=== PATIENT | male | born 1955 ===

== ENCOUNTER 2022-06-02 13:37 | Inpatient (IN) | payer MEDICARE, MEDICAID, SELFPAY ==
[2022-06-02 16:00] VITALS: BP 137/79; PULSE 116; RESP 32; TEMP 36; O2SAT 95
--- NOTE | 2022-06-02 16:03 | PM.HP.1 ---
History of Present Illness History of Present Illness Chief complaint: ACUTE ON CHRONIC RESPIRATORY FAILURE Narrative: Mr. Valenzuela is a 66M with PMH COPD, CAD, active tobacco use, meth abuse, HTN, TIA, treated Hep C who presents to the hospital with shortness of breath. He has noted shortness of breath for the last few days. He has noted a cough, with little sputum production. He has no fevers or chills. He has noted chest pain when he coughs. No sick contacts. His shortness of breath continued to worsen so he presented to [facility]. In the ED he was noted to be with significant work of breathing. His vitals were notable for a sat in the 80s. He was placed on nasal cannula at 6L. Labs showed a WBC of 21, creatinine 1.6 from baseline of 1.1-1.3. Troponin were indeterminate level. CTA showed no PE, but did show hyperinflated lungs and bibasilar opacities. CT abdomen showed no acute intra-abdominal process. He was RSV positive. COVID negative. He was ordered for steroids, nebulizers and antibiotics. He was requested transfer initially because ED physician Dr. Miller stated that the hospital did not let him admit patients on 6L oxygen. He later called back and changed the reason for transfer due to no open hospital beds. When he arrived he was speaking in full sentences. He felt his shortness of breath was improving. Social history: active smoker approx 5 cigarettes daily, regular meth user, marijuana use Family history: Father with CAD Meds Home Medications and Allergies Home Medications Medication Instructions Recorded Confirmed Type No Known Home Medications 06/02/22 06/02/22 History Allergies Allergy/AdvReac Type Severity Reaction Status Date / Time No Known Drug Allergies Allergy Verified 06/02/22 16:58 Review of Systems Review of Systems Narrative: 14 systems reviewed and negative aside from what is noted in HPI Exam Vital Signs (past 8 hours): - 06/02/22 16:00 Temperature 96.8 F L Pulse Rate 116 H Respiratory Rate 32 H Blood Pressure 137/79 Pulse Oximetry 95 Oxygen Flow Rate 6 Oxygen Flow Rate 6 Narrative Exam Narrative: GEN: chronically ill appearing, disheveled, respiratory distress HEENT: moist mucous membranes, PERRL NECK: trachea midline, no JVD PULM: wheezes and decreased breath sounds bilaterally CV: tachycardic, no murmurs ABD: soft, nontender, nondistended, no organomegaly EXT: warm and well perfused with no edema NEURO: awake, alert, oriented, no focal deficits Objective Labs Result Diagrams: 06/02/22 16:10 06/02/22 16:10 Assessment & Plan Assessment & Plan narrative: 1. Acute hypoxemic respiratory failure and acute COPD exacerbation -secondary to RSV pneumonia and possible bacterial pneumonia -RSV positive at OSH -CTA negative for PE -initially requiring 6L nasal cannula -goal spo2 88-92% -has already been ordered oxygen at home, but has not been delivered -very likely will need oxygen at discharge -for now treat RSV and COPD with nebs, steroids, and azithromycin -given opacities noted on xray higher suspicion for bacterial pneumonia and will continue ceftriaxone and azithromycin -follow up cultures -order sputum culture 2. Elevated troponin -repeat troponin normalized in once arriving here in this hospital -check EKG to make sure no evidence of ACS -suspect troponin secondary to demand ischemia from hypoxemia 3. YASIR -creatinine baseline 1.1-1.3 -on admission to other hospital creatinine 1.6 -recheck daily 4. Methamphetamine abuse and dependence, tobacco abuse -patient states he is not at risk of withdrawal -declines any treatment for withdrawal at this time 5. HTN -hold anti-hypertensives for now -restart tomorrow if remains stable 6. Hepatitis C -patient states this is treated and eradicated 7. History of TIA -continue home medications CODE: Full Proxy: Laith Street, friend I have utilized all available resources to reconcile the patient's home medications Time Spent With Patient Critical Care time: I spent a total of [] minutes of critical care time on this patient's care today; this time is exclusive of procedural time.
[2022-06-02 16:42] VITALS: O2SAT 94
[2022-06-02 16:44] LABS: Add Manual Diff / Slide Review NO; Basophils Absolute Auto 0 /uL (0-100); Basophils Percent Auto 0.1 % (0-2); Eosinophils Absolute Auto 0 /uL (0-450); Hematocrit 45.4 % (41-53); Hemoglobin 14.9 g/dL (13.5-17.5); Lymphocytes Absolute Auto 300 /uL (1100-4500); Lymphocytes Percent Auto 1.9 % (25-40); Mean Corpuscular HGB Conc 32.9 % (30-36); Mean Corpuscular Hemoglobin 30.4 PG (26-34); Mean Corpuscular Volume 92.3 fL (80-100); Monocytes Absolute Auto 600 /uL (0-900); Monocytes Percent Auto 3.8 % (3-14); Neutrophils Absolute Auto 15100 /uL (1500-7000); Neutrophils Percent Auto 94.2 % (50-75); Platelet Count 276 X10^3/uL (150-400); Red Blood Cell Count 4.92 X10^6/uL (4.5-5.9); Red Cell Distribution Width 14.4 % (11.6-14.8)
[2022-06-02 16:48] VITALS: BMI 18.7
[2022-06-02 16:48] LABS: Alanine Aminotransferase 18 IU/L (<50); Albumin Globulin Ratio 1.3 (1.0-2.8); Alkaline Phosphatase 75 U/L (38-126); Aspartate Aminotransferase 19 IU/L (17-59); BUN Creatinine Ratio 15.7 (6-22); Bilirubin Total 0.9 mg/dL (0.2-1.3); Blood Urea Nitrogen 21 mg/dL (9-20); Calcium 8.7 mg/dL (8.4-10.2); Carbon Dioxide 26 mmol/L (22-32); Chloride 95 mmol/L (98-107); Estimated Glomerular Filt Rate 58 mL/min (>60); Globulin 3.2 g/dL (1.7-4.1); Glucose 141 mg/dL (80-110); HEMOLYSIS < 15 (0-50); Potassium 4.8 mmol/L (3.4-5.1); Sodium 130 mmol/L (137-145); Total Protein 7.2 g/dL (6.3-8.2)
[2022-06-02 16:58] LABS: Troponin I 0.018 ng/mL (0.01-0.034)
[2022-06-02] MEDS: AZITHROMYCIN 500 MG in DEXTROSE 5% IN WATER 250 ML 250 MG IV (17:38)
[2022-06-02 18:00] VITALS: BP 100/60; PULSE 121; RESP 32; TEMP 36.6; O2SAT 97
[2022-06-02 18:31] LABS: PCO2 ABG 35.9 mmHg (35-45); pH ABG 7.43 (7.35-7.45)
[2022-06-02 18:32] LABS: HCO3 ABG 24 mmol/L (22-26); Oxygen Saturation ABG 89 % (95-100); PO2 ABG 56 mmHg (80-100); TCO2 ABG 25 mmol/L (21-31)
[2022-06-02 18:35] LABS: Fractionated Inspired Oxygen 44
[2022-06-02] MEDS: cefTRIAXone 1,000 MG in SODIUM CHLORIDE 0.9% 100 ML 200 MG IV (19:16)
[2022-06-02] MEDS: ALBUTEROL/IPRATROPIUM 3 ML AMPUL INH (19:32)
[2022-06-02 20:00] VITALS: O2SAT 94
[2022-06-02 23:06] LABS: Troponin I 0.015 ng/mL (0.01-0.034)
[2022-06-03] VITALS (12 sets, daily range): BP systolic 117–126; BP diastolic 59–71; PULSE 80–156; RESP 20–22; TEMP 36–37.3; O2SAT 91–95
[2022-06-03 06:13] LABS: Add Manual Diff / Slide Review NO; Basophils Absolute Auto 0 /uL (0-100); Eosinophils Absolute Auto 0 /uL (0-450); Hematocrit 42.3 % (41-53); Hemoglobin 14.1 g/dL (13.5-17.5); Lymphocytes Absolute Auto 400 /uL (1100-4500); Lymphocytes Percent Auto 2.5 % (25-40); Mean Corpuscular HGB Conc 33.2 % (30-36); Mean Corpuscular Hemoglobin 30.3 PG (26-34); Mean Corpuscular Volume 91.4 fL (80-100); Monocytes Absolute Auto 700 /uL (0-900); Monocytes Percent Auto 4.8 % (3-14); Neutrophils Absolute Auto 14100 /uL (1500-7000); Neutrophils Percent Auto 92.7 % (50-75); Platelet Count 285 X10^3/uL (150-400); Red Blood Cell Count 4.63 X10^6/uL (4.5-5.9); Red Cell Distribution Width 14.1 % (11.6-14.8); White Blood Cell Count 15.3 X10^3/uL (4.5-11.0)
[2022-06-03 06:24] LABS: BUN Creatinine Ratio 16.8 (6-22); Blood Urea Nitrogen 24 mg/dL (9-20); Carbon Dioxide 29 mmol/L (22-32); Chloride 93 mmol/L (98-107); Estimated Glomerular Filt Rate 53 mL/min (>60); Glucose 124 mg/dL (80-110); HEMOLYSIS < 15 (0-50); Potassium 5.1 mmol/L (3.4-5.1); Sodium 131 mmol/L (137-145)
[2022-06-03] MEDS: ALBUTEROL/IPRATROPIUM 3 ML AMPUL INH ×4 (09:12→19:14)
[2022-06-03] MEDS: ENOXAPARIN 40 MG/0.4 ML SYRINGE SUBCUT (09:23)
[2022-06-03] MEDS: predniSONE 20 MG TABLET 40 MG PO (09:24)
--- NOTE | 2022-06-03 14:19 | CM.DANOTE ---
Initial DCP Assessment Note Patient is 66 y/o male who resides alone in [place]. Patient initially went to [facility] ED due to concerns for SOB and was transferred to due to concern for RSV Pneumonia, acute Hypoxic respiratory failure and COPD exacerbation. Patient is inpatient status. Patient's PCP is Dr. Tre Castro with [facility], Patient has [employer] [employer] insurance. STRETCHER LEVELER OPERATOR enters room to meet with patient. Patient presents as A/Ox3, patient endorses he lives alone in [place]. Patient endorses he is independent with ADLs and has friends that live near by. Patient endorses he has a cane and wheelchair at home. Patient endorses his PCP ordered home o2 for him but he has yet to receive it and would like to set this up with respiratory therapy. Initially patient required 6 L of o2 at . Patient denies DCP needs at this time. Patient endorses he feels safe at home and has his basic needs met. When asked about substance use, patient states he only uses THC. Patient endorses upon d/c he will need a ride. STRETCHER LEVELER OPERATOR encourages patient to reach out to friends and if there is no one that can pick patient up then Medicaid transportation will be set up for patient. Plan: f/u with POC and set up Medicaid transportation upon patient d/c. No other DCP needs at this time. MAICOL Thacker Discharge Planning/Care Management CM Discharge Assessment Start: 06/03/22 14:15 Freq: Status: Active Protocol: Document 06/03/22 14:16 LN (Rec: 06/03/22 14:19 LN [id number]) Discharge Planning Assessment Assigned Measurer Machine MAICOL Taylor Advance Directives? No History Provided By Patient,Medical Record Has Patient been admitted in last 30 No days? Prior Living Arrangements Apartment/Condo Household Members none Type of transporation used prior to Drives own vehicle admit Independent with ADL's Yes Is patient alert and oriented? Yes DME Already Rented / Owned Wheelchair,Cane Discharge Plan Home [facility] Oxygen Therapy Transportation Arrangement Patient endorses his PCP ordered him home O2 but he has yet to receive it. Referrals Initiated Respiratory Therapy Additional Comment RT to refer patient home O2 Whiteboard Updated in Patient Room with Yes name and ext. # of Measurer Machine Please Provide Date Initial DC 06/03/22 Assessment Was Performed
[2022-06-03] MEDS: LORazepam 2 MG/ML INJ 1 MG IV (14:22)
--- NOTE | 2022-06-03 15:58 | P.PN_ITS ---
Subjective Subjective Date Patient Seen: 06/03/22 Interval history: Feels improved today, though somewhat nauseous. He is profoundly tachycardic, EKG shows sinus tachycardia. BP stable. Exam Vital Signs (past 8 hours): - 06/03/22 08:44 06/03/22 08:44 06/03/22 09:26 Temperature Pulse Rate 115 H Respiratory Rate 20 Blood Pressure Pulse Oximetry 93 95 Oxygen Delivery Method Nasal Cannula Nasal Cannula Humidification Nasal Cannula Oxygen Flow Rate 3 3 06/03/22 11:56 06/03/22 12:15 06/03/22 13:55 Temperature 98.1 F Pulse Rate 115 H 156 H Respiratory Rate 22 20 Blood Pressure 126/71 Pulse Oximetry 94 93 94 Oxygen Delivery Method Nasal Cannula Nasal Cannula Oxygen Flow Rate 3 3 3 06/03/22 15:00 Temperature Pulse Rate 81 Respiratory Rate Blood Pressure Pulse Oximetry Oxygen Delivery Method Oxygen Flow Rate Fraction of Inspired Oxygen 92 Oxygen Delivery Method Nasal Cannula Oxygen Flow Rate 3 Narrative Exam Narrative: GEN: chronically ill appearing, disheveled, no acute distress HEENT: moist mucous membranes, PERRL NECK: trachea midline, no JVD PULM: wheezes and decreased breath sounds bilaterally CV: tachycardic, regular, no murmurs ABD: soft, nontender, nondistended, no organomegaly EXT: warm and well perfused with no edema NEURO: awake, alert, oriented, no focal deficits Objective Labs Result Diagrams: 06/03/22 06:02 06/03/22 06:02 Labs: Laboratory Results - last 24 hr 06/02/22 06/02/22 06/02/22 16:10 16:10 17:24 WBC 16.0 H RBC 4.92 Hgb 14.9 Hct 45.4 MCV 92.3 MCH 30.4 MCHC 32.9 RDW 14.4 Plt Count 276 Neut % (Auto) 94.2 H Lymph % (Auto) 1.9 L [place] % (Auto) 3.8 Eos % (Auto) 0.0 L Baso % (Auto) 0.1 Neut # (Auto) 47397 H Lymph # (Auto) 300 L [place] # (Auto) 600 Eos # (Auto) 0 Baso # (Auto) 0 ABG pH 7.43 ABG pCO2 35.9 ABG pO2 56 L ABG HCO3 24 ABG Total CO2 25 ABG O2 Saturation 89 L ABG Base Excess -1.0 FiO2 44 Sodium 130 L Potassium 4.8 Chloride 95 L Carbon Dioxide 26 BUN 21 H Creatinine 1.34 H Estimated GFR 58 L BUN/Creatinine Ratio 15.7 Glucose 141 H Calcium 8.7 Total Bilirubin 0.9 AST 19 ALT 18 Alkaline Phosphatase 75 Troponin I 0.018 Total Protein 7.2 Albumin 4.0 Globulin 3.2 Albumin/Globulin Ratio 1.3 06/02/22 06/03/22 06/03/22 22:30 06:02 06:02 WBC 15.3 H RBC 4.63 Hgb 14.1 Hct 42.3 MCV 91.4 MCH 30.3 MCHC 33.2 RDW 14.1 Plt Count 285 Neut % (Auto) 92.7 H Lymph % (Auto) 2.5 L [place] % (Auto) 4.8 Eos % (Auto) 0.0 L Baso % (Auto) 0.0 Neut # (Auto) 03055 H Lymph # (Auto) 400 L [place] # (Auto) 700 Eos # (Auto) 0 Baso # (Auto) 0 ABG pH ABG pCO2 ABG pO2 ABG HCO3 ABG Total CO2 ABG O2 Saturation ABG Base Excess FiO2 Sodium 131 L Potassium 5.1 Chloride 93 L Carbon Dioxide 29 BUN 24 H Creatinine 1.43 H Estimated GFR 53 L BUN/Creatinine Ratio 16.8 Glucose 124 H Calcium 9.0 Total Bilirubin AST ALT Alkaline Phosphatase Troponin I 0.015 Total Protein Albumin Globulin Albumin/Globulin Ratio [facility] Social History household members: none Smoking Status: Current every day smoker alcohol intake: never Assessment & Plan Assessment & Plan narrative: 1. Acute hypoxemic respiratory failure and acute COPD exacerbation -secondary to RSV pneumonia and possible bacterial pneumonia -RSV positive at OSH -CTA negative for PE -initially requiring 6L nasal cannula, now improved. -goal spo2 88-92% -has already been ordered oxygen at home, but has not been delivered -very likely will need oxygen at discharge -for now treat RSV and COPD with nebs, steroids, and azithromycin -given opacities noted on xray higher suspicion for bacterial pneumonia and will continue ceftriaxone and azithromycin -follow up cultures -order sputum culture 2. Elevated troponin -repeat troponin normalized in once arriving here in this hospital -suspect troponin secondary to demand ischemia from hypoxemia 3. YASIR -creatinine baseline 1.1-1.3 -on admission to other hospital creatinine 1.6 -recheck daily 4. Methamphetamine abuse and dependence, tobacco abuse -patient states he is not at risk of withdrawal, but given tachycardia and nausea today suspect some component of withdrawal. -continue benzos prn for symptoms, tachycardia did improve briefly with benzo. 5. HTN - normotensive here without medications thus far, will continue to monitor. 6. Hepatitis C -patient states this is treated and eradicated 7. History of TIA -continue home medications CODE: Full Proxy: Laith Street, friend I have utilized all available resources to reconcile the patient's home medications Time Spent With Patient Critical Care time: I spent a total of [] minutes of critical care time on this patient's care today; this time is exclusive of procedural time.
[2022-06-03] MEDS: AZITHROMYCIN 500 MG in DEXTROSE 5% IN WATER 250 ML 250 MG IV (16:00)
[2022-06-03] MEDS: cefTRIAXone 1,000 MG in SODIUM CHLORIDE 0.9% 100 ML 200 MG IV (17:18)
[2022-06-04] VITALS (17 sets, daily range): BP systolic 116–131; BP diastolic 71–88; PULSE 89–150; RESP 18–30; TEMP 36.2–37.4; O2SAT 92–98
[2022-06-04] MEDS: LORazepam 2 MG/ML INJ 1 MG IV (06:30)
[2022-06-04] MEDS: ALBUTEROL/IPRATROPIUM 3 ML AMPUL INH ×2 (09:03→19:44)
[2022-06-04] MEDS: predniSONE 20 MG TABLET 40 MG PO (09:05)
[2022-06-04] MEDS: ENOXAPARIN 40 MG/0.4 ML SYRINGE SUBCUT (09:05)
--- NOTE | 2022-06-04 11:17 | PC.NURSE ---
Day shift: Dr Yates informed at approx 0825 that Pt seems to be confused this AM. Pt was at the window seat without NC in place. Pt was able to ambulate back to bed. Placed back on ONC. Pt also did not eat breakfast this AM. He does follow directions but is not talking at this time. Cough still present and lungs sounds congested. Bed alarm is on and call light in reach.
--- NOTE | 2022-06-04 15:06 | DIET.CONS ---
Dietary Consultation Note Admission Date: 06/02/2022 13:37 Assessment: 66 y/o M admitted with PMH COPD, CAD, active tobacco use, meth abuse, HTN, TIA, treated Hep C who presents to the hospital with shortness of breath and treated for acute respiratory failure and acute COPD exacerbation secondary to RSV, YASIR, and elevated troponin. Per provider 06/03 notes, pt may actively be in withdrawal r/t tachycardia and nausea. BMI is low for age <21 (severe) Reports previous wt of 160# last year indicating a 11% reduction over the last year. States this has been chronic since a previous hospitalization for gangrene. Endorses adequate access to food with EBT. A friend often cooks for him. Also receives 48 ONS per month from [facility]. Diet recall indicates three small meals per day (B: cereal L: sandwich D: burrito) +1-2 ONS per day. Upon visual exam, pt shows wasting in depressed temples, hollowed orbitals, and protruding clavicle. Ht: 185.42 cm Wt: 64.5 kg BMI: 18.7 UBW: 73kg a year ago Last BM: 06/03/22 (06/03/22 11:00) MNA: 11 Murali Score: 19 Diet: 06/02/22 Dinner Heart Healthy Diet Diet Modifications: Nutrition Percent Meal Consumed 50% 06/04/22 14:45 Percent Meal Consumed 50% 06/03/22 18:00 Percent Meal Consumed 75% 06/03/22 08:50 Percent Meal Consumed 50% 06/02/22 18:20 Labs: RBC 4.63 X10^6/uL (4.5-5.9) 06/03/22 06:02 Hgb 14.1 g/dL (13.5-17.5) 06/03/22 06:02 Hct 42.3 % (41-53) 06/03/22 06:02 Creatinine 1.43 mg/dL (0.66-1.25) H 06/03/22 06:02 Nutrition Diagnosis: Severe chronic protein calorie malnutrition r/t weight loss after hospitalization, predicted inadequate PO for energy needs aeb diet recall <2000kcals per day, withdrawal, physical signs of malnutrition in sikhism, orbital, and clavicle, and low BMI of age of 18.7. Interventions: High kcal/PRo ONS BID; discussed ways to increase kcal intake after discharge (increasing kcals with meals/snacks and potentially ONS BID) EER: 3083-6188 kcal (38-40kcal/kg per BMI) 97-130g (1.5-2g PRO per malnutrition) Monitoring/Evaluations: ONS tolerance, weight, PO Electronically Signed by: Rayna Rayo 06/04/22 15:06 Clinical Dietitian [address] [address]
[2022-06-04] MEDS: SODIUM CHLORIDE 0.9% 250 ML 21 ML IV (16:06)
[2022-06-04] MEDS: AZITHROMYCIN 500 MG in DEXTROSE 5% IN WATER 250 ML 250 MG IV (16:11)
--- NOTE | 2022-06-04 16:29 | P.PN_ITS ---
Subjective Subjective Date Patient Seen: 06/04/22 Interval history: Feels improved today, but more fatigued. Improved breathing he reports but still requiring oxygen. Heart rate is much improved today into the low 100s. Exam Vital Signs (past 8 hours): - 06/04/22 09:03 06/04/22 09:09 06/04/22 12:00 Temperature 99.4 F 98.3 F Pulse Rate 113 H 107 H 106 H Respiratory Rate 18 28 H 30 H Blood Pressure 116/80 121/71 Pulse Oximetry 92 94 92 Oxygen Delivery Method Nasal Cannula Oxygen Flow Rate 3.5 5 5 06/04/22 12:43 06/04/22 15:00 Temperature Pulse Rate Respiratory Rate Blood Pressure Pulse Oximetry 92 94 Oxygen Delivery Method Nasal Cannula Nasal Cannula Humidification Oxygen Flow Rate 3 3 Fraction of Inspired Oxygen 93 Oxygen Delivery Method Nasal Cannula,Humidification Oxygen Flow Rate 3 Narrative Exam Narrative: GEN: chronically ill appearing, disheveled, no acute distress HEENT: moist mucous membranes, PERRL NECK: trachea midline, no JVD PULM: wheezes and decreased breath sounds bilaterally CV: tachycardic, regular, no murmurs ABD: soft, nontender, nondistended, no organomegaly EXT: warm and well perfused with no edema NEURO: awake, alert, oriented, no focal deficits Objective Labs Result Diagrams: 06/03/22 06:02 06/03/22 06:02 [facility] Social History household members: none Smoking Status: Current every day smoker alcohol intake: never Assessment & Plan Assessment & Plan narrative: 1. Acute hypoxemic respiratory failure and acute COPD exacerbation and superimposed bacterial pneumonia with RSV pneumonia. -secondary to RSV pneumonia and possible bacterial pneumonia -RSV positive at OSH -CTA negative for PE -initially requiring 6L nasal cannula, now improved to 3L -goal spo2 88-92% -has already been ordered oxygen at home, but has not been delivered -very likely will need oxygen at discharge -for now treat RSV and COPD with nebs, steroids, and antibiotics. -given opacities noted on xray higher suspicion for bacterial pneumonia and will continue ceftriaxone and azithromycin -follow up cultures, currently without growth. 2. Elevated troponin / myocardial injury -repeat troponin normalized in once arriving here in this hospital -suspect troponin secondary to demand ischemia from hypoxemia 3. YASIR -creatinine baseline 1.1-1.3 -on admission to other hospital creatinine 1.6 -continue to follow. 4. 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 -continue benzos prn for symptoms, tachycardia did improve with benzos and is improved today. 5. HTN - normotensive here without medications thus far, will continue to monitor. 6. Hepatitis C -patient states this is treated and eradicated 7. History of TIA -continue home medications CODE: Full Proxy: Laith Street, friend I have utilized all available resources to reconcile the patient's home medications Time Spent With Patient Critical Care time: I spent a total of [] minutes of critical care time on this patient's care today; this time is exclusive of procedural time.
[2022-06-04] MEDS: cefTRIAXone 1,000 MG in SODIUM CHLORIDE 0.9% 100 ML 200 MG IV (17:01)
[2022-06-04] MEDS: SODIUM CHLORIDE 0.9% FLUSH 10 ML IV (20:07)
[2022-06-05] VITALS (10 sets, daily range): BP systolic 128–154; BP diastolic 65–98; PULSE 68–101; RESP 18–22; TEMP 35.6–36.6; O2SAT 90–100
--- NOTE | 2022-06-05 03:27 | PC.NURSE ---
Pt is AxOx2-3,very sleepy but arousable. VSS, no s/s pain or discomfort noted. Pt is on 1.5L O2 with NC and lungs clear and diminished throughout and crackles on bases. Pt woke up around 3 a.m and asked for popsicle. No other changes. Continued droplet precaution.
[2022-06-05] MEDS: ACETAMINOPHEN 325 MG TABLET 650 MG PO (06:27)
[2022-06-05] MEDS: ALBUTEROL/IPRATROPIUM 3 ML AMPUL INH ×2 (07:52→19:57)
[2022-06-05 07:54] LABS: Add Manual Diff / Slide Review NO; Basophils Absolute Auto 0 /uL (0-100); Basophils Percent Auto 0.2 % (0-2); Eosinophils Absolute Auto 0 /uL (0-450); Eosinophils Percent Auto 0.4 % (2-4); Hemoglobin 14.8 g/dL (13.5-17.5); Lymphocytes Absolute Auto 1100 /uL (1100-4500); Lymphocytes Percent Auto 10.7 % (25-40); Mean Corpuscular HGB Conc 33.8 % (30-36); Mean Corpuscular Hemoglobin 30.6 PG (26-34); Mean Corpuscular Volume 90.7 fL (80-100); Monocytes Absolute Auto 1400 /uL (0-900); Neutrophils Absolute Auto 7600 /uL (1500-7000); Neutrophils Percent Auto 74.7 % (50-75); Platelet Count 313 X10^3/uL (150-400); Red Blood Cell Count 4.85 X10^6/uL (4.5-5.9); Red Cell Distribution Width 14.3 % (11.6-14.8); White Blood Cell Count 10.2 X10^3/uL (4.5-11.0)
[2022-06-05 08:09] LABS: Blood Urea Nitrogen 27 mg/dL (9-20); Calcium 8.6 mg/dL (8.4-10.2); Carbon Dioxide 30 mmol/L (22-32); Chloride 96 mmol/L (98-107); Estimated Glomerular Filt Rate > 60 mL/min (>60); Glucose 110 mg/dL (80-110); HEMOLYSIS 29 (0-50); Magnesium 2.3 mg/dL (1.6-2.3); Potassium 4.6 mmol/L (3.4-5.1); Sodium 134 mmol/L (137-145)
[2022-06-05] MEDS: predniSONE 20 MG TABLET 40 MG PO (10:08)
[2022-06-05] MEDS: ENOXAPARIN 40 MG/0.4 ML SYRINGE SUBCUT (10:08)
[2022-06-05] MEDS: SODIUM CHLORIDE 0.9% FLUSH 10 ML IV ×2 (10:09→20:44)
--- NOTE | 2022-06-05 14:45 | PM.PN.1 ---
Subjective Subjective Date Patient Seen: 06/05/22 Interval history: Feels improved today and a bit stronger. Improved breathing he reports but still requiring oxygen. Heart rate is much improved today and now normal. Exam Vital Signs (past 8 hours): - 06/05/22 06:50 06/05/22 07:53 Temperature 97.5 F L Pulse Rate 88 83 Respiratory Rate 22 18 Blood Pressure 143/77 H Pulse Oximetry 93 96 Oxygen Delivery Method Nasal Cannula Oxygen Flow Rate 1.5 2 Fraction of Inspired Oxygen 28 Fraction of Inspired Oxygen 28 SaO2/FiO2 Ratio 342 Oxygen Delivery Method Nasal Cannula Oxygen Flow Rate 2 Narrative Exam Narrative: GEN: chronically ill appearing, disheveled, no acute distress HEENT: moist mucous membranes, PERRL NECK: trachea midline, no JVD PULM: wheezes and decreased breath sounds bilaterally CV: tachycardic, regular, no murmurs ABD: soft, nontender, nondistended, no organomegaly EXT: warm and well perfused with no edema NEURO: awake, alert, oriented, no focal deficits Objective Labs Result Diagrams: 06/05/22 07:40 06/05/22 07:40 Labs: Laboratory Results - last 24 hr 06/05/22 06/05/22 07:40 07:40 WBC 10.2 RBC 4.85 Hgb 14.8 Hct 44.0 MCV 90.7 MCH 30.6 MCHC 33.8 RDW 14.3 Plt Count 313 Neut % (Auto) 74.7 Lymph % (Auto) 10.7 L [place] % (Auto) 14.0 Eos % (Auto) 0.4 L Baso % (Auto) 0.2 Neut # (Auto) 7600 H Lymph # (Auto) 1100 [place] # (Auto) 1400 H Eos # (Auto) 0 Baso # (Auto) 0 Sodium 134 L Potassium 4.6 Chloride 96 L Carbon Dioxide 30 BUN 27 H Creatinine 0.93 Estimated GFR > 60 BUN/Creatinine Ratio 29.0 H Glucose 110 Calcium 8.6 Magnesium 2.3 PFSH Social History household members: none Smoking Status: Current every day smoker alcohol intake: never Assessment & Plan Assessment & Plan narrative: 1. Acute hypoxemic respiratory failure and acute COPD exacerbation and superimposed bacterial pneumonia with RSV pneumonia. -secondary to RSV pneumonia and possible bacterial pneumonia -RSV positive at OSH -CTA negative for PE -initially requiring 6L nasal cannula, now improved to 1-2L -goal spo2 88-92% -has already been ordered oxygen at home, but has not been delivered -very likely will need oxygen at discharge -for now treat RSV and COPD with nebs, steroids, and antibiotics. -given opacities noted on xray higher suspicion for bacterial pneumonia and will continue ceftriaxone and azithromycin -follow up cultures, currently without growth. 2. Elevated troponin / myocardial injury -repeat troponin normalized in once arriving here in this hospital -suspect troponin secondary to demand ischemia from hypoxemia 3. YASIR -creatinine baseline 1.1-1.3 ? -on admission to other hospital creatinine 1.6, now improved to 0.93 -continue to follow. 4. 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 -continue benzos prn for symptoms, tachycardia did improve with benzos and now appears resolved 5. HTN - normotensive here without medications thus far, will continue to monitor. 6. Hepatitis C -patient states this is treated and eradicated 7. History of TIA -continue home medications CODE: Full Proxy: Laith Street, friend I have utilized all available resources to reconcile the patient's home medications Dispo: probable discharge in the next 1-2 days with home O2. Time Spent With Patient Critical Care time: I spent a total of [] minutes of critical care time on this patient's care today; this time is exclusive of procedural time.
[2022-06-05] MEDS: cefTRIAXone 1,000 MG in SODIUM CHLORIDE 0.9% 100 ML 200 MG IV (17:15)
[2022-06-06] VITALS (7 sets, daily range): BP systolic 145–149; BP diastolic 85–89; PULSE 87–101; RESP 16–22; TEMP 35.8–37.1; O2SAT 92–100
[2022-06-06] MEDS: ALBUTEROL 2.5 MG/3 ML NEB (ADULT) INH (00:45)
--- NOTE | 2022-06-06 02:51 | PC.NURSE ---
Pt is AxOx3-4, calm and cooperative. VSS, pt denies pain. Pt is on 2L NC at night but when he is awake, pt can be on 1L NC. Pt coughed strong around 2200 and had some sputum. Lungs diminished in all area and crackles on LLL posterior today. Otherwise, pt is doing well, pt is awake during the day and eating, drinking well. No other changes. Continued droplet precaution.
--- NOTE | 2022-06-06 08:03 | PM.DS.1 ---
History of Present Illness History of Present Illness Date Patient Seen: 06/06/22 Chief complaint: ACUTE ON CHRONIC RESPIRATORY FAILURE Narrative: Mr. Valenzuela is a 66M with PMH COPD, CAD, active tobacco use, meth abuse, HTN, TIA, treated Hep C who presents to the hospital with shortness of breath. He has noted shortness of breath for the last few days. He has noted a cough, with little sputum production. He has no fevers or chills. He has noted chest pain when he coughs. No sick contacts. His shortness of breath continued to worsen so he presented to [facility]. In the ED he was noted to be with significant work of breathing. His vitals were notable for a sat in the 80s. He was placed on nasal cannula at 6L. Labs showed a WBC of 21, creatinine 1.6 from baseline of 1.1-1.3. Troponin were indeterminate level. CTA showed no PE, but did show hyperinflated lungs and bibasilar opacities. CT abdomen showed no acute intra-abdominal process. He was RSV positive. COVID negative. He was ordered for steroids, nebulizers and antibiotics. He was requested transfer initially because ED physician Dr. Miller stated that the hospital did not let him admit patients on 6L oxygen. He later called back and changed the reason for transfer due to no open hospital beds. When he arrived he was speaking in full sentences. He felt his shortness of breath was improving. Social history: active smoker approx 5 cigarettes daily, regular meth user, marijuana use Family history: Father with CAD Discharge Providers Provider Date of admission: 06/02/22 13:37 Discharge Date: 06/06/22 Primary care physician: Tre Castro MD Consults: 06/02/22 16:57 Consult to Dietitian, Adult Routine Comment: Reason For Exam: thin and emanciated Consult to [facility] - [employer] Routine Comment: Discharge provider: Christopher Watkins DO Summary Hospital Course Discharge Diagnosis: 1. Acute hypoxemic respiratory failure and acute COPD exacerbation and superimposed bacterial pneumonia with RSV pneumonia. -secondary to RSV pneumonia and possible bacterial pneumonia -RSV positive at OSH -CTA negative for PE -initially requiring 6L nasal cannula, now improved to 1-2L at rest -goal spo2 88-92% -will need 2L home O2 and 6L with ambulation, this was ordered for home through [facility] -given opacities noted on xray higher suspicion for bacterial pneumonia and will continued CAP abx with rocephin and azithro -discharged on 1 additional day of prednisone and augmentin to complete 5 day course 2. Elevated troponin / myocardial injury -repeat troponin normalized in once arriving here in this hospital -suspect troponin secondary to demand ischemia from hypoxemia 3. YASIR, resolved -creatinine baseline 1.1-1.3 ? -on admission to other hospital creatinine 1.6, now improved to 0.93 -continue to follow. 4. 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 -continue benzos prn for symptoms, tachycardia did improve with benzos and now appears resolved 5. HTN ?- normotensive here without medications thus far, will continue to monitor. 6. Hepatitis C -patient states this is treated and eradicated 7. History of TIA -continue home medications Hospital Course: Admitted for COPD exacerbation from RSV. Initially required 6L at rest but this was weaned to 1-2L at rest after treatment with prednisone, nebs, and antibiotics. Patient was evaluated for home oxygen and needed 2L at rest and 6L with ambulation. He felt well and ready to go home, so 1 more day of po abx and steroids was prescribed as well as an albuterol inhaler PRN. He should obtain a PCP referral to a salesperson shoes for ongoing COPD management. Time Spent with Patient Time spent: Greater than 30 minutes Exam Vital Signs (past 8 hours): - 06/06/22 00:28 06/06/22 00:45 06/06/22 03:00 Temperature 98.8 F Pulse Rate 99 H 93 H Respiratory Rate 22 20 Blood Pressure 149/85 H Pulse Oximetry 93 96 96 Oxygen Delivery Method Nasal Cannula Nasal Cannula Oxygen Flow Rate 2 1.5 2 06/06/22 06:25 Temperature 96.4 F L Pulse Rate 87 Respiratory Rate 22 Blood Pressure 145/85 H Pulse Oximetry 98 Oxygen Delivery Method Oxygen Flow Rate 2 Fraction of Inspired Oxygen 28 SaO2/FiO2 Ratio 342 Oxygen Delivery Method Nasal Cannula Oxygen Flow Rate 2 Narrative Exam Narrative: GEN: chronically ill appearing, disheveled, no acute distress HEENT: moist mucous membranes, PERRL NECK: trachea midline, no JVD PULM: wheezes and decreased breath sounds bilaterally CV: tachycardic, regular, no murmurs ABD: soft, nontender, nondistended, no organomegaly EXT: warm and well perfused with no edema NEURO: awake, alert, oriented, no focal deficits Objective Labs Result Diagrams: 06/06/22 10:43 06/06/22 10:43 Labs: Laboratory Results - last 24 hr 06/05/22 06/05/22 07:40 07:40 WBC 10.2 RBC 4.85 Hgb 14.8 Hct 44.0 MCV 90.7 MCH 30.6 MCHC 33.8 RDW 14.3 Plt Count 313 Neut % (Auto) 74.7 Lymph % (Auto) 10.7 L [place] % (Auto) 14.0 Eos % (Auto) 0.4 L Baso % (Auto) 0.2 Neut # (Auto) 7600 H Lymph # (Auto) 1100 [place] # (Auto) 1400 H Eos # (Auto) 0 Baso # (Auto) 0 Sodium 134 L Potassium 4.6 Chloride 96 L Carbon Dioxide 30 BUN 27 H Creatinine 0.93 Estimated GFR > 60 BUN/Creatinine Ratio 29.0 H Glucose 110 Calcium 8.6 Magnesium 2.3 PFSH Social History household members: none Smoking Status: Current every day smoker alcohol intake: never Discharge Plan Discharge Plan Patient Disposition: Home Provider Discharge Comment: You were admitted due to a COPD exacerbation caused by RSV virus. You improved with nebulizer treatments, steroids and antibiotics. You will need to take 1 more day of steroids and antibiotics at home. I've sent an albuterol inhaler to use as needed for shortness of breath for your COPD. You should probably see your PCP for a referral to a salesperson [employer] (lung doctor) to help manage your COPD going forward. You will also be on home oxygen for the time being. Pickup an oximeter to measure your oxygen levels, which you want to keep between 88-92%. Discharge orders & Medications Prescriptions: New prednisone 20 mg Tablet 40 mg PO DAILY 1 Days Qty: 2 0RF Rx Instructions: start on 06/07 amoxicillin-pot clavulanate 875-125 mg tablet 1 tab PO BID 1 Days Qty: 2 0RF Rx Instructions: take on 06/07 albuterol sulfate 90 mcg/actuation HFA aerosol inhaler 2 puff inhalation Q4-6H PRN (Reason: shortness of breath or wheezing) Qty: 8.5 2RF Follow up/Referrals: Tre Castro MD [Primary Care Provider] - 2 Weeks Visit Report/Discharge Packet Instructions: DI for Chronic Obstructive Pulmonary Disease, DI for Respiratory Syncytial Virus -- Adults Discharge Data Primary Care Provider: Tre Castro
[2022-06-06] MEDS: ALBUTEROL/IPRATROPIUM 3 ML AMPUL INH (08:55)
--- NOTE | 2022-06-06 09:23 | DI.RAD.S_ITS ---
PROCEDURE: XR CHEST 1V INDICATIONS: hypoxia, COPD exac TECHNIQUE: One view of the chest was acquired. COMPARISON: [facility], , CHEST 2VW, 12/12/2013, 10:41. FINDINGS: Surgical changes and devices: None. Lungs and pleura: Lungs are clear, yet hyperexpanded. No pleural effusions or pneumothorax. Mediastinum: Mediastinal contours appear normal. Heart size is normal. Bones and chest wall: No suspicious bony lesions. Overlying soft tissues appear unremarkable. IMPRESSION: Hyperexpanded lungs, without an acute cardiopulmonary process identified. Dictated by: Mohan Campos M.D. on 06/06/2022 at 10:33 Approved by: Mohan Campos M.D. on 06/06/2022 at 10:34
[2022-06-06] MEDS: ACETAMINOPHEN 325 MG TABLET 650 MG PO (11:05)
[2022-06-06] MEDS: SODIUM CHLORIDE 0.9% FLUSH 10 ML IV (11:06)
[2022-06-06] MEDS: ENOXAPARIN 40 MG/0.4 ML SYRINGE SUBCUT (11:06)
[2022-06-06] MEDS: predniSONE 20 MG TABLET 40 MG PO (11:06)
[2022-06-06 11:15] LABS: Add Manual Diff / Slide Review NO; Basophils Absolute Auto 0 /uL (0-100); Basophils Percent Auto 0.2 % (0-2); Eosinophils Absolute Auto 100 /uL (0-450); Eosinophils Percent Auto 0.7 % (2-4); Hematocrit 41.3 % (41-53); Lymphocytes Absolute Auto 1700 /uL (1100-4500); Lymphocytes Percent Auto 14.8 % (25-40); Mean Corpuscular HGB Conc 33.9 % (30-36); Mean Corpuscular Hemoglobin 30.3 PG (26-34); Mean Corpuscular Volume 89.3 fL (80-100); Monocytes Absolute Auto 1500 /uL (0-900); Neutrophils Absolute Auto 8100 /uL (1500-7000); Neutrophils Percent Auto 71.3 % (50-75); Platelet Count 345 X10^3/uL (150-400); Red Blood Cell Count 4.62 X10^6/uL (4.5-5.9); Red Cell Distribution Width 14.4 % (11.6-14.8); White Blood Cell Count 11.4 X10^3/uL (4.5-11.0)
[2022-06-06 11:27] LABS: BUN Creatinine Ratio 22.5 (6-22); Blood Urea Nitrogen 25 mg/dL (9-20); Calcium 8.7 mg/dL (8.4-10.2); Carbon Dioxide 33 mmol/L (22-32); Chloride 94 mmol/L (98-107); Estimated Glomerular Filt Rate > 60 mL/min (>60); Glucose 99 mg/dL (80-110); HEMOLYSIS < 15 (0-50); Magnesium 1.9 mg/dL (1.6-2.3); Potassium 4.3 mmol/L (3.4-5.1); Sodium 133 mmol/L (137-145)
[2022-06-06 11:42] LABS: Procalcitonin 0.43 ng/mL (<0.5)
--- NOTE | 2022-06-06 15:52 | PC.NURSE ---
dc orders, friend Mayra here to pick him up. home o2 is set up by RT.
--- NOTE | 2022-06-06 15:55 | CM.DPC ---
DCP/continued: Reviewed chart. Provider reports that patient is medically stable for dicharge. Respiratory evaluating for home oxygen. RN reports patient has not addition d/c planning needs. Patient has friend providing him with transport. P: Home today with home . [facility]
== END 2022-06-06 15:10 | disposition home or self-care (01) | DRG 193 ==
PROVIDERS: Internal Medicine; Student in an Organized Health Care Education/Training Program; Admitting Provider Internal Medicine; PCP Family Medicine; Referring Provider Internal Medicine; Visit Provider Internal Medicine
DX: J12.1 Respiratory syncytial virus pneumonia (principal); J96.01 Acute respiratory failure with hypoxia; N17.9 Acute kidney failure, unspecified; J44.1 Chronic obstructive pulmonary disease with (acute) exacerbation; F15.23 Other stimulant dependence with withdrawal; I5A Non-ischemic myocardial injury (non-traumatic); F17.210 Nicotine dependence, cigarettes, uncomplicated; J15.9 Unspecified bacterial pneumonia; I10 Essential (primary) hypertension; Z86.73 Personal history of transient ischemic attack (TIA), and cerebral infarction without residual deficits; Z20.822 Contact with and (suspected) exposure to COVID-19
CPT/HCPCS: 36415; 36600; 71045; 80048; 80053; 82805; 83735; 84145; 84484; 85025; 87070; 87077; 87205; 93005; 94618; 94640; 94760; 94762; J0696; J1650; J2060; J7613